=== PATIENT | female | born 1975 | race Caucasian/White ===

== ENCOUNTER 2025-01-04 15:41 | Outpatient (CLI) | payer BC | END 2025-01-04 15:42 | disposition home or self-care (01) | LOC: EDSEX → CSHLAB 15:41 | PROVIDERS: ATTEND Obstetrics & Gynecology | DX: Z01.812 Encounter for preprocedural laboratory examination (principal); N83.8 Other noninflammatory disorders of ovary, fallopian tube and broad ligament | CPT/HCPCS: 84703; 85027; 86850; 86900; 86901 ==